=== PATIENT | male | born 1940 | race Caucasian/White ===

== ENCOUNTER 2017-01-20 05:28 | Day surgery (SDC) | payer MEDICARE ==
[~2017-01-20 05:28] MED LIST: ASAB PO; CARTIA XT120 MG/24 PO; CARTIA XT240 MG/24 PO; CYTOTEC2 PO; FLOMAX4 PO; GLUCOPHAGE1000 MG PO; GLUCPH PO; HYZAAR1 TAB PO; ICY HOT16 % TOP; KLOR-CON 1010 MEQ PO; LIPITOR20 PO; LOTE20 PO; MAG-DELAY PO; MEVACOR40 MG PO; NORV5 PO; OTC IRON PO; PCET PO; PERCOCET1 TA4 PO; PLAVIX PO; PRINZIDE1 TA1 PO; PROTONIX PO; ULTRAM50 PO; VICODINTAB PO
== END 2017-01-20 15:35 | disposition home or self-care (01) ==
LOC: SDC 05:28
PROVIDERS: Orthopaedic Surgery
PROC: 3E0S33Z Introduction of Anti-inflammatory into Epidural Space, Percutaneous Approach (ICD-10-PCS; 2017-01-20)
PROC: B01BZZZ Fluoroscopy of Spinal Cord (ICD-10-PCS; 2017-01-20)
PROC: 3E0S3BZ Introduction of Anesthetic Agent into Epidural Space, Percutaneous Approach (ICD-10-PCS; principal; 2017-01-20 07:45)
DX: M54.16 Radiculopathy, lumbar region (principal); M19.90 Unspecified osteoarthritis, unspecified site; I10 Essential (primary) hypertension; N20.0 Calculus of kidney; E11.40 Type 2 diabetes mellitus with diabetic neuropathy, unspecified; K21.9 Gastro-esophageal reflux disease without esophagitis; D64.9 Anemia, unspecified; F41.9 Anxiety disorder, unspecified; Z88.5 Allergy status to narcotic agent; Z88.8 Allergy status to other drugs, medicaments and biological substances; Z79.84 Long term (current) use of oral hypoglycemic drugs; Z79.891 Long term (current) use of opiate analgesic; Z79.899 Other long term (current) drug therapy; Z90.89 Acquired absence of other organs; Z98.890 Other specified postprocedural states; Z85.72 Personal history of non-Hodgkin lymphomas; Z85.46 Personal history of malignant neoplasm of prostate; Z92.3 Personal history of irradiation; Z92.21 Personal history of antineoplastic chemotherapy
CPT/HCPCS: 82962; J1040; J2250; J3010; Q9967